=== PATIENT | male | born 1945 | race Caucasian/White ===

== ENCOUNTER 2019-09-10 07:40 | Outpatient (CLI) | payer MEDICARE, OTHER, SELFPAY ==
--- NOTE | 2019-09-10 08:15 | XR_ITS ---
WS: [id number] XR KUB [id number] REASON FOR EXAM: . FINDINGS: The large calcified density previously described on December 16, 2017 in the mid left abdomen i s no longer evident. There is nonspecific gas and fecal stasis. Numerous phleboliths are seen in the pelvis but no definite stones. XR/XR KUB [id number] IMPRESSION: Nonspecific abdominal findings.
== END 2019-09-10 07:41 | disposition home or self-care (01) ==
PROVIDERS: Family Provider Electrodiagnostic Medicine; PCP Electrodiagnostic Medicine; Visit Provider Urology
DX: N20.0 Calculus of kidney (principal)
CPT/HCPCS: 74018; 81001

== ENCOUNTER 2019-11-29 15:45 | Outpatient (CLI) | payer MEDICARE, OTHER, SELFPAY ==
--- NOTE | 2019-11-29 15:55 | MR_ITS ---
WS: [id number] MRI LUMBAR SPINE NONCONTRAST HISTORY: BACK PAIN, LUMBAR WITH RADICULOPATHY, ARTHRITIS COMPARISON: None available. TECHNIQUE: Sagittal and axial multisequence imaging is submitted. L4 anterolisthesis by 5.0 mm. No acute fractures. There is a small amount of marrow edema RIGHT L5 pe dicle and facet joint. There are small bilateral cysts at the L4-5 facet joints. Mild disc desiccation throughout the lumbar spine with mild narrowing of the L1-2 space. Conus terminates normally at L1. L1-L2: Mild annular disc bulging with facet and ligamentum flavum arthritis. There is mild osteophyti c ridging of the vertebral bodies. Very mild bilateral foraminal narrowing. L2-L3: Mild annular disc bulging and osteophytic ridging. Mild ligamentum flavum arthritis and facet joint arthritis. Mild RIGHT foraminal narrowing. L3-L4: Annular disc bulging and osteophytic ridging with facet and ligamentum flavum hypertrophy. Mil d encroachment upon the central canal and subarticular recesses and foramen. Increase fluid in the fa cet joints, greatest on the RIGHT. L4-L5: Diffuse annular disc bulging with slight unroofing of the disc due to anterolisthesis of L4. T here is marked ligamentum flavum hypertrophy. Bilateral facet joint arthritis at narrowing with cysts . Moderate to severe central and subarticular recess stenosis. Mild bilateral foraminal stenosis. L5-S1: Broad-based disc bulging and facet arthritis. No significant stenosis. LEFT renal cyst. Parapelvic cysts. 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 MR/MR lumbar spine wo con* [id number] IMPRESSION: 1. Moderate to severe central and subarticular recess stenosis at L4-5 due to combination of degenerative changes. 2. Multilevel mild bilateral foraminal stenosis. 3. Advanced facet joint arthritis at L4-5 with bilateral facet joint cysts. 4. L4 anterolisthesis by 5 mm.
== END 2019-11-29 15:46 | disposition home or self-care (01) ==
LOC: RADWPI 15:50
PROVIDERS: Family Provider Electrodiagnostic Medicine; PCP Electrodiagnostic Medicine; Visit Provider Electrodiagnostic Medicine
DX: M54.16 Radiculopathy, lumbar region (principal); M19.90 Unspecified osteoarthritis, unspecified site; M62.838 Other muscle spasm; M54.89 Other dorsalgia; M48.061 Spinal stenosis, lumbar region without neurogenic claudication; M25.80 Other specified joint disorders, unspecified joint
CPT/HCPCS: 72148

== ENCOUNTER 2020-02-06 13:55 | Outpatient (CLI) | payer MEDICARE, OTHER, SELFPAY ==
--- NOTE | 2020-02-06 14:00 | XR_ITS ---
WS: [id number] Lumbar spine with flexion, extension, and neutral lateral, 02/06/2020 Clinical Data: SPONDYLOLISTHESIS Comparison: Lumbar spine, 04/30/2015 Findings: No compression fractures or subluxation is seen. There is disc narrowing at the L1-L2 disc level.. No limitation of motion or subluxation is seen on flexion or extension.. 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
== END 2020-02-06 13:56 | disposition home or self-care (01) ==
LOC: RADWPI 13:59
PROVIDERS: Family Provider Electrodiagnostic Medicine; PCP Electrodiagnostic Medicine; Visit Provider Nurse Practitioner
DX: M43.16 Spondylolisthesis, lumbar region (principal)
CPT/HCPCS: 72120

== ENCOUNTER 2020-12-08 10:20 | Outpatient (CLI) | payer MEDICARE, OTHER, SELFPAY ==
--- NOTE | 2020-12-08 10:47 | XR_ITS ---
WS: [id number] RIGHT HIP HISTORY: RIGHT HIP PAIN COMPARISON: None available. Right hip: No acute fracture or dislocation. . Mild sclerosis along the superior acetabulum and small amount of osteophytic ridging. No significant irregularity along the femoral head cortex. XR/XR hip RT 2-3V wo/w pel* [id number] IMPRESSION: 1. No hip fracture. 2. . Minimal RIGHT hip changes of osteoarthritis.
== END 2020-12-08 10:21 | disposition home or self-care (01) ==
PROVIDERS: PCP Electrodiagnostic Medicine; Visit Provider Anesthesiology Pain Medicine
DX: M25.551 Pain in right hip (principal)
CPT/HCPCS: 73502

== ENCOUNTER → 2021-01-09 08:03 | Outpatient (BNVA) | payer MEDICARE, OTHER, SELFPAY | PROVIDERS: PCP Electrodiagnostic Medicine; Referring Provider Orthopaedic Surgery; Visit Provider Orthopaedic Surgery | DX: M48.061 Spinal stenosis, lumbar region without neurogenic claudication (principal) | CPT/HCPCS: 72110 ==

== ENCOUNTER → 2021-01-15 09:18 | Outpatient (BNVA) | payer MEDICARE, OTHER, SELFPAY | PROVIDERS: PCP Electrodiagnostic Medicine; Referring Provider Orthopaedic Surgery; Visit Provider Anesthesiology Pain Medicine | DX: M48.061 Spinal stenosis, lumbar region without neurogenic claudication (principal); M47.816 Spondylosis without myelopathy or radiculopathy, lumbar region; M43.10 Spondylolisthesis, site unspecified; M79.604 Pain in right leg; M79.605 Pain in left leg | CPT/HCPCS: 99205 ==

== ENCOUNTER → 2021-02-04 13:53 | Outpatient (BNVA) | payer MEDICARE, OTHER, SELFPAY | PROVIDERS: PCP Electrodiagnostic Medicine; Visit Provider Anesthesiology Pain Medicine | DX: M54.16 Radiculopathy, lumbar region (principal) | CPT/HCPCS: 64483; 64484; J1100; J3490 ==

== ENCOUNTER → 2021-02-19 14:21 | Outpatient (BNVA) | payer MEDICARE, OTHER, SELFPAY | PROVIDERS: PCP Electrodiagnostic Medicine; Visit Provider Anesthesiology Pain Medicine | DX: M48.061 Spinal stenosis, lumbar region without neurogenic claudication (principal); M47.816 Spondylosis without myelopathy or radiculopathy, lumbar region; M43.10 Spondylolisthesis, site unspecified; M79.604 Pain in right leg; M79.605 Pain in left leg | CPT/HCPCS: 99214 ==

== ENCOUNTER → 2021-03-04 13:47 | Outpatient (BNVA) | payer MEDICARE, OTHER, SELFPAY | PROVIDERS: PCP Electrodiagnostic Medicine; Visit Provider Anesthesiology Pain Medicine | DX: M47.816 Spondylosis without myelopathy or radiculopathy, lumbar region (principal) | CPT/HCPCS: 64493; 64494; 64495; J3490 ==

== ENCOUNTER 2021-03-06 07:53 | Outpatient (CLI) | payer MEDICARE, OTHER, SELFPAY ==
--- NOTE | 2021-03-06 08:15 | XR_ITS ---
WS: [id number] KUB, AP view, 03/06/2021 Clinical Data: CALCULUS OF KIDNEY Comparison: KUB, 09/10/2019. Findings: No abnormal intraabdominal masses are seen. There is no dilatated small bowel or evidence of obstruct ion. There is a 0.6 cm calcification left of the L4 vertebral body which could be in the left ureter. Ther e are phleboliths in the true pelvis. Fecal material and colon gas obscure detail over both kidneys. No definite renal calcifications are seen. XR/XR KUB [id number] Impression: Possible left ureteral calculus.
== END 2021-03-06 07:54 | disposition home or self-care (01) ==
LOC: RAD 07:58
PROVIDERS: PCP Electrodiagnostic Medicine; Visit Provider Urology
DX: N20.0 Calculus of kidney (principal)
CPT/HCPCS: 74018; 81003

== ENCOUNTER 2021-03-12 09:53 | Outpatient (CLI) | payer MEDICARE, OTHER, SELFPAY ==
--- NOTE | 2021-03-12 09:45 | XR_ITS ---
WS: [id number] XR KUB [id number] REASON FOR EXAM: ureteral calculus FINDINGS: Compared to the examination of 03/06/2021 the presumed left ureteral calculus seen just superior to th e left sacroiliac joint is no longer identifiable in that position or within the pelvis. No other urinary tract calculi are identified. No other significant abdominal abnormality is identified. XR/XR KUB [id number] IMPRESSION: Previously defined left ureteral calculus no longer identifiable.
== END 2021-03-12 09:54 | disposition home or self-care (01) ==
LOC: RAD 09:55
PROVIDERS: PCP Electrodiagnostic Medicine; Visit Provider Urology
DX: N20.1 Calculus of ureter (principal)
CPT/HCPCS: 74018; 81003

== ENCOUNTER → 2021-03-19 09:02 | Outpatient (BNVA) | payer MEDICARE, OTHER, SELFPAY | PROVIDERS: PCP Electrodiagnostic Medicine; Visit Provider Anesthesiology Pain Medicine | DX: M48.061 Spinal stenosis, lumbar region without neurogenic claudication (principal); M47.816 Spondylosis without myelopathy or radiculopathy, lumbar region; M43.10 Spondylolisthesis, site unspecified; M79.601 Pain in right arm; M79.602 Pain in left arm; Z79.891 Long term (current) use of opiate analgesic | CPT/HCPCS: 99214 ==

== ENCOUNTER 2021-03-25 07:59 | Outpatient (CLI) | payer MEDICARE, OTHER, SELFPAY ==
--- NOTE | 2021-03-25 07:30 | XR_ITS ---
WS: [id number] Exam: XR KUB [id number] Date/Time of Exam: 03/25/2021 8:05 AM Reason For Exam: CALCULUS OF KIDNEY No bowel obstruction or free air. Moderate amount retained stool in the colon. No obvious calcificati ons noted in the region of the kidneys. Nonspecific pelvic calcifications probably phleboliths. Regio nal bony elements are intact. XR/XR KUB [id number] IMPRESSION: 1. No acute abdominal finding. Moderate amount retained stool in the colon.
== END 2021-03-25 08:00 | disposition home or self-care (01) ==
LOC: RAD 08:02
PROVIDERS: PCP Electrodiagnostic Medicine; Visit Provider Urology
DX: N20.0 Calculus of kidney (principal); N20.1 Calculus of ureter
CPT/HCPCS: 74018; 81003

== ENCOUNTER → 2021-03-30 13:45 | Outpatient (BNVA) | payer MEDICARE, OTHER, SELFPAY | PROVIDERS: PCP Electrodiagnostic Medicine; Visit Provider Anesthesiology Pain Medicine | DX: M47.816 Spondylosis without myelopathy or radiculopathy, lumbar region (principal); Z79.891 Long term (current) use of opiate analgesic; Z87.891 Personal history of nicotine dependence | CPT/HCPCS: 64635; 64636 ==

== ENCOUNTER 2021-04-01 07:02 | Outpatient (CLI) | payer MEDICARE, OTHER, SELFPAY ==
--- NOTE | 2021-04-01 07:00 | XR_ITS ---
WS: [id number] XR KUB [id number] REASON FOR EXAM: URETERAL CALCULUS FINDINGS: Distal left ureteral calculus demonstrated on 03/06/2021 was not identified but in retrospect is prese nt on the examination of 03/12/2011 overlapping a phlebolith. This distal left ureteral calculus can b e seen separate from the phlebolith on 04/24/2021 and on the current examination. It has not changed position significantly compared to 03/25/2021. XR/XR KUB [id number] IMPRESSION: Persistent left distal ureteral calculus as above.
== END 2021-04-01 07:03 | disposition home or self-care (01) ==
LOC: RAD 07:04
PROVIDERS: PCP Electrodiagnostic Medicine; Visit Provider Urology
DX: N20.1 Calculus of ureter (principal); Z20.822 Contact with and (suspected) exposure to COVID-19
CPT/HCPCS: 74018; 81003; 87635

== ENCOUNTER 2021-04-06 10:39 | Day surgery (SDC) | payer MEDICARE, OTHER, SELFPAY ==
[2021-04-03 14:03] VITALS: BMI 24.4
[2021-04-06] VITALS (7 sets, daily range): BP systolic 138–173; BP diastolic 82–103; PULSE 52–60; RESP 12–17; TEMP 36–36.8; O2SAT 95–98
--- NOTE | 2021-04-06 | SCC_ITS ---
Procedure Done: 1. Cystoscopy, LEFT retrograde ureteropyelogram 2. LEFT ureteroscopy, laser lithotripsy, stent 25.2 seconds of fluoroscopic guidance, for a cumulative dose of 5.37 mGy, was provided to Dr. Sanchez by the radiology department. C-arm images of the abdomen were saved for the patient's permanent record. [facility]
--- NOTE | 2021-04-06 10:46 | SC_ITS ---
WS: [id number] C-arm [place] for Urology REASON FOR EXAM: Left ureteroscopy FINDINGS: Injection of contrast into the distal left ureteral orifice opacifies the distal most left ureter dem onstrating a filling defect compatible with previously diagnosed distal left ureteral calculus. Retrograde passage of a catheter to the left renal pelvis with no contrast injected. SC/C-arm [place] for Urology IMPRESSION: Initial demonstration of distal left ureteral calculus. Catheter passage to the left renal pelvis.
--- NOTE | 2021-04-06 10:46 | XR_ITS ---
WS: [id number] XR KUB [id number] REASON FOR EXAM: Left distal ureteral stone FINDINGS: Calculus in the left pelvis, presumed left distal ureteral calculus is not significantly changed posi tion since previous examination of 04/01/2021. No other significant abdominal or pelvic abnormality. XR/XR KUB [id number] IMPRESSION: Presumed distal left ureteral calculus with no further migration.
--- NOTE | 2021-04-06 11:33 | ANES.PREANE2 ---
Pre-Anesthetic Assessment Pre-Anesthetic Assessment: Height/Weight: Height 1.85 m Weight 83.915 kg Temp Pulse Resp BP Pulse Ox 98.3 F 56 L 16 161/88 95 04/06/21 11:14 04/06/21 11:14 04/06/21 11:14 04/06/21 11:28 04/06/21 11:14 Preop Diagnosis: Refractory left distal ureteral stone Proposed Procedure: Operation Date: 04/06/21 12:00 Proposed Procedures p Cystoscopy 26228 N20.1(Not Applicable) - Pop Sanchez MD s Retrograde Pyelogram(Not Applicable) - MD nuzhat Matamoros Ureteroscopy(Not Applicable) - MD nuzhat [place] Laser Lithotripsy(Not Applicable) - Pop Sanchez MD s Ureteral Stent Placement(Not Applicable) - Pop Sanchez MD Familial anesthetic complications: none Was Beta Tabby taken within 24 hours: Yes Was Clonidine taken within 24 hours: N/A Last intake: Intake Last Liquid Date 04/05/21 Last Liquid Time 20:00 Last Solid Date 04/05/21 Last Solid Time 19:00 Social: Social History: No alcohol and No tobacco Exam: Pre-Anes Outpt Exam: alert, oriented x 3, clear to auscultation bilaterally and regular rate & rhythm Airway: Cervical ROM: WNL MP: 2 Dentition: Partials CV/HEM: CV/HEM: HTN Anesthetic Plan: ASA status: 2 Anesthesia: General Risk of > 500 ml blood loss (7ml/kg in children): No PFSH Anesthesia PFSH: Medical History Calculus of kidney Surgical History Hx of inguinal hernia repair Status post extracorporeal shock wave therapy Status post placement of ureteral stent Family History Mother , AT AGE 89. HX OF BLOOD CLOTS Hypertension Father , AT AGE 75 Diabetes Social History Second hand smoke exposure: No Alcohol intake: current Alcohol intake frequency: few times a month Alcohol type: beer and hard liquor Adopted: No Caregiver/support person: No Lives independently: No Household members: spouse Marital status: Current occupational status: retired History of recent travel: No Data Anesthesia Cardiac Studies: No Data to Display
--- NOTE | 2021-04-06 12:03 | W.PM.OPSUD ---
Surgery/Procedure H&P Update DATE OF PROCEDURE: April 06, 2021 DATE H&P PERFORMED: 03/31/21 H&P UPDATE INFORMATION: I have reviewed H&P completed within last 30 days, I have examined patient prior to procedure, No changes to prior documentation and H&P is in [facility] EMR on date indicated CHANGES TO PREVIOUS DOCUMENTATION: Still same spot on KUB PREOP DIAGNOSIS: Refractory left distal ureteral stone PLANNED PROCEDURE: Operation Date: 04/06/21 12:00 Proposed Procedures p Cystoscopy 16425 N20.1(Not Applicable) - Pop Sanchez MD s Retrograde Pyelogram(Not Applicable) - MD nuzhat [place] Ureteroscopy(Not Applicable) - MD nuzhat [place] Laser Lithotripsy(Not Applicable) - Pop Sanchez MD s Ureteral Stent Placement(Not Applicable) - Pop Sanchez MD
--- NOTE | 2021-04-06 12:07 | PM.OP ---
Operative Report Date of procedure: April 06, 2021 Pre-op Diagnosis: Refractory left distal ureteral stone Post-op diagnosis: same Procedure Done: 1. Cystoscopy, LEFT retrograde ureteropyelogram 2. LEFT ureteroscopy, laser lithotripsy, stent Specimens removed/disposition: Stone fragments Pathology: Stone fragments Surgeon: Daniel Anesthesia: General Estimated blood loss: Normal Complications: None Findings: 1. Stone in the expected position. 2. Some stone related inflammatory changes in the ureter, leading to the stent Condition: stable Disposition: PACU Brief History: Mr. Kim is a very pleasant 76-year-old white male with a recently diagnosed left ureteral stone that was located in the left mid ureter at diagnosis. Had intermittent severe symptoms. He wanted to see if he could pass the stone but failed to progress to the point of passage and stalled in the left distal ureter. He was offered continued conservative management but ultimately wanted to proceed with intervention is admitted today to outpatient surgery for cystoscopy ureteroscopic treatment. Procedure: After routine preoperative evaluation examination and obtaining of informed consent he was taken to the operating suite on 04/06/2021 where general anesthesia was administered without difficulty after appropriate timeout was performed, SCDs confirmed to be functioning, preoperative antibiotics administered, beta-grady protocol confirmed. Prepped and draped in the usual sterile fashion in dorsolithotomy position pain careful attention to avoid pressure points. 21 Mauritanian cystoscope with 30 degree lens was introduced into the urethra meatus and advanced into the bladder under videoscopy. Bladder was systematically examined. No stone was identified. An 8 Mauritanian cone-tip catheter was intubated into the left ureteral orifice for a left retrograde ureteropyelogram which demonstrated stone in the expected position. The ureter proximal to that was not severely dilated. A flexible tip guidewire was then advanced up the left ureter bypassing the stone without difficulty. The distally ureter was dilated with a 15 Mauritanian 4 cm balloon. The wire was secured to the drapes as a safety wire and a 7 Mauritanian offset semirigid ureteroscope was advanced up the left ureter next to the stent. The stone was encountered in the expected position. It was fragmented with a 365 ?m thulium superpulse laser fiber into small fragments that were flushed free and removed with a parachute basket. The cystoscope was then backloaded over the guidewire and a 4.5 Mauritanian by 30 cm ureteral stent without string was advanced over the guidewire through the cystoscope into appropriate position as confirmed via fluoroscopy and cystoscopy. The bladder was drained and the procedure was completed after flushing out the fragments from the bladder. Tolerated procedure well without complication and was awakened in the operating room and returned to the recovery room in stable condition. PLANS: 1. Anticipate discharge from outpatient surgery 2. Follow-up early next week or late this week for cystoscopy and stent removal in the office.
[2021-04-06] MEDS: sodium chloride 0.9% 1,000 ML 30 ML IV (12:23)
[2021-04-06] MEDS: levofloxacin-dextrose 5 % 500 MG/100 ML PREMIX 100 MG IV (12:26)
[2021-04-06] MEDS: iohexol 300 mg/mL 50 mL Btl (OR ONLY) XX (13:22)
[2021-04-16 02:02] LABS: Stone Source LEFT URETER
== END 2021-04-06 14:22 | disposition home or self-care (01) ==
PROVIDERS: PCP Electrodiagnostic Medicine; Visit Provider Urology
PROC: 0TJB8ZZ Inspection of Bladder, Via Natural or Artificial Opening Endoscopic (ICD-10-PCS; CPT 52000; principal; 2021-04-06 12:00)
PROC: (CPT 74420; 2021-04-06 12:00)
PROC: 0TJ98ZZ Inspection of Ureter, Via Natural or Artificial Opening Endoscopic (ICD-10-PCS; CPT 52351; 2021-04-06 12:00)
PROC: (CPT 52356; 2021-04-06 12:00)
PROC: (CPT 50605; 2021-04-06 12:00)
DX: N20.1 Calculus of ureter (principal); I10 Essential (primary) hypertension
CPT/HCPCS: 52356; 74018; 76000; 82365; 88300; C2625; J1100; J1956; J2370; J2405; J2704; J2710; J3010; J3490; J7030

== ENCOUNTER 2021-04-06 18:54 | Emergency (ER) | payer MEDICARE, OTHER, SELFPAY ==
[2021-04-06 19:13] VITALS: BP 186/63; PULSE 76; RESP 16; TEMP 36.9; O2SAT 94
--- NOTE | 2021-04-06 20:54 | W.ED.GENADLT ---
HPI - General Adult General: Chief complaint: General Medical Stated complaint: Had Stent Put intoday, Cant urinate Time Seen by Provider: 04/06/21 20:48 Source: patient Mode of arrival: ambulatory Limitations: no limitations History of Present Illness: HPI narrative: 76-year-old male who states he had a stent placed today for kidney stone has not been able to urinate since he has been home. He states he been having pressure over his bladder states he is only been able to get a dribble out. States he does have pain he rates a 6 out of 10. Denies any fever. Associated symptoms: Deny chest pain, dyspnea, headache(s), nausea, rash or vomiting Review of Systems Const: Denies: fever(s), chills, body aches or change in appetite Eyes: Denies: blurry vision or eye discomfort ENMT: Denies: throat pain or dental pain Card: Denies: chest pain Resp: Denies: dyspnea GI: Denies: abdominal pain, nausea, vomiting or diarrhea : Reports: difficulty urinating Musc: Denies: neck pain or back pain Skin/Breast: Denies: rash Neuro: Denies: headache(s) Psych: Denies: depression [place]/Lymph: Denies: easy bruising All/Imm: Denies: urticaria PFSH ED PFSH: Medical History Calculus of kidney Surgical History Hx of inguinal hernia repair Status post extracorporeal shock wave therapy Status post placement of ureteral stent Family History Mother , AT AGE 89. HX OF BLOOD CLOTS Hypertension Father , AT AGE 75 Diabetes Social History Second hand smoke exposure: No Alcohol intake: current Alcohol intake frequency: few times a month Alcohol type: beer and hard liquor Adopted: No Caregiver/support person: No Lives independently: No Household members: spouse Marital status: Current occupational status: retired History of recent travel: No Physical Exam Const: COMMON NORMALS: no acute distress, patient oriented x3 and healthy appearing HENMT: COMMON NORMALS: normocephalic and atraumatic HEAD & SCALP: normocephalic and atraumatic Eye: COMMON NORMALS: Equal, round and reactive pupils present and EOMs intact bilaterally PUPIL: Yes Equal, round and reactive pupils present Neck/C-Spine: COMMON NORMALS: full ROM and supple Chest: COMMONS NORMALS: normal inspection of the chest and normal palpation of entire chest wall Resp: COMMON NORMALS: normal respiratory effort, No retractions, No use of accessory muscles and clear to auscultation bilaterally AUSCULTATION: clear to auscultation bilaterally Cardio: COMMON NORMALS: regular rate, regular rhythm and No murmurs present (Cardio) RATE: regular rate RHYTHM: regular rhythm GI: COMMON NORMALS: Normal to inspection, nondistended, normoactive bowel sounds present, Soft to palpation, non-tender and no masses PALPATION: Yes Soft to palpation Extremity: COMMON NORMALS: normal to inspection and full ROM Neuro: COMMON NORMALS: patient oriented x3, moves all extremities and no focal motor deficits Psych: COMMON NORMALS: mental status grossly normal, Normal thought process present and cooperative THOUGHT PROCESS: Normal thought process present Skin: COMMON NORMALS: no rashes or lesions noted and no wounds GENERAL SKIN EXAM: no rashes or lesions noted Course Vital Signs: Vital signs: Vital Signs Temperature 98.4 F 04/06/21 19:13 Pulse Rate 85 04/06/21 21:27 Respiratory Rate 16 04/06/21 21:27 Blood Pressure 179/95 04/06/21 21:27 Pulse Oximetry 96 04/06/21 21:27 MDM - General Adult MDM Narrative: Medical decision making narrative: Patient presents here with urinary retention feels much improved after [place] placed. We will get him follow-up with Dr. Sanchez leave [place] in place and have him with a leg bag. He stable for discharge is to return if worsening. Lab Data: Labs: Lab Results 04/06/21 21:20 Urine Color Brown (Yellow) Urine Appearance Cloudy (CLEAR) Urine pH 5 (5-7) Ur Specific Gravit y 1.020 (1.005-1.030) Urine Protein 3+ H (Negative) Urine Glucose (UA) 1+ H (Normal) Urine Ketones Negative (Negative) Urine Blood 3+ H (Negative) Urine Nitrate Negative (Negative) Urine Bilirubin Neg (Negative) Urine Urobilinogen Norm mg/dL mg/dL (Negative) Ur Leukocyte Светлана ase Trace H (Negative) Urine RBC Too numerous to c nt /hpf H /hpf (0-2) Urine WBC 0-4 /hpf H /hpf (0-5) Ur Squamous Epith Cells 0-4 /hpf H /hpf (0-5) Amorphous Sediment Not Reportable Urine Bacteria Trace /hpf /hpf (NONE) Discharge Plan Discharge Patient Disposition: Home Clinical Impression: Acute urinary retention Condition: Stable Prescriptions: New cephalexin 500 mg capsule 500 mg PO TID 7 Days Qty: 21 RF: 0 No Action omeprazole 40 mg capsule,delayed release(DR/EC) 40 mg PO DAILY RF: 0 glucosamine-chondroitin [Osteo Bi-Flex] 250-200 mg tablet 2 tab PO TID RF: 0 lysine [L-Lysine] 500 mg tablet 500 mg PO DAILY RF: 0 fexofenadine [Pamela Allergy] 60 mg tablet 60 mg PO BID RF: 0 omega-3 fatty acids [Fish Oil Concentrate] 1,000 mg capsule 1,000 mg PO DAILY RF: 0 Ultra CoQ10 75 mg capsule 75 mg PO DAILY RF: 0 meloxicam 7.5 mg tablet 7.5 mg PO DAILY RF: 0 carvedilol 6.25 mg tablet 6.25 mg PO BID RF: 0 tramadol 50 mg tablet 50 mg PO DAILY PRN (Reason: Pain) RF: 0 saw palmetto 500 mg capsule 500 mg PO DAILY RF: 0 oxycodone-acetaminophen [Percocet] 5-325 mg tablet 1 tab PO Q6H PRN (Reason: pain) 4 Days Qty: 16 RF: 0 tamsulosin 0.4 mg capsule 0.4 mg PO QDAY Qty: 30 RF: 12 methylprednisolone acetate [Depo-Medrol] 40 mg/mL suspension 40 mg Infiltration ONCE Qty: 1 RF: 0 lidocaine (PF) 10 mg/mL (1 %) solution 10 mg SUBCUT ONCE Qty: 1 RF: 0 multivitamin Tablet 1 tab PO DAILY RF: 0 vitamin B complex Capsule 1 cap PO DAILY RF: 0 Discharge Orders: Discharge ED (Routine); Ordered 04/06/21 Ordered By: Cathleen Fuentes Referrals: Pop Sanchez MD [Physician] - 1-3 days Moisés Moore DO [Primary Care Provider] - Discharge Diet: Advance as tolerated Discharge Activity: Resume usual activity Patient Instructions: Urinary Retention in Men (ED) Coding Level of Care Code ED Cost Accounting Manager for [employer] Fwd Exam Comprehensive
[2021-04-06 21:27] VITALS: BP 179/95; PULSE 85; RESP 16; O2SAT 96
[2021-04-06 21:49] LABS: Add Urine Culture? Yes; Add Urine Microscopic? YES; Bacteria Urine TRACE /hpf; Bilirubin Urine Neg (Negative); Blood Urine 3+ (Negative); Glucose Urine UA 1+ (Normal); Ketones Urine Negative (Negative); Leukocyte Esterase Urine Trace (Negative); Nitrate Urine Negative (Negative); Protein Urine 3+ (Negative); RBC Urine TOO NUMEROUS TO CNT /hpf (0-2); Squamous Epithelial Cell Urine 0-4 /hpf (0-5); Urine Appearance Cloudy (CLEAR); Urine Color Brown (Yellow); Urobilinogen Urine Norm (Negative); WBC Urine 0-4 /hpf (0-5); pH Urine 5 (5-7)
[2021-04-06 22:10] VITALS: BP 159/87; PULSE 76; RESP 18; O2SAT 95
== END 2021-04-06 22:13 | disposition home or self-care (01) ==
PROVIDERS: Emergency Provider Emergency Medicine; PCP Electrodiagnostic Medicine
DX: R33.9 Retention of urine, unspecified (principal); Z87.442 Personal history of urinary calculi; Z96.0 Presence of urogenital implants; N20.1 Calculus of ureter; I10 Essential (primary) hypertension
CPT/HCPCS: 51702; 74018; 76000; 81001; 82365; 87086; 88300; 99282; C2625; J1956; J2370; J2704; J2710; J3490; J7030

== ENCOUNTER → 2021-04-13 12:42 | Outpatient (BNVA) | payer MEDICARE, OTHER, SELFPAY | PROVIDERS: PCP Electrodiagnostic Medicine; Visit Provider Anesthesiology Pain Medicine | DX: M47.816 Spondylosis without myelopathy or radiculopathy, lumbar region (principal); M54.16 Radiculopathy, lumbar region; Z79.891 Long term (current) use of opiate analgesic | CPT/HCPCS: 64635; 64636; J1030 ==

== ENCOUNTER → 2021-04-27 09:06 | Outpatient (BNVA) | payer MEDICARE, OTHER, SELFPAY | PROVIDERS: PCP Electrodiagnostic Medicine; Visit Provider Anesthesiology Pain Medicine | DX: M48.061 Spinal stenosis, lumbar region without neurogenic claudication (principal); M47.816 Spondylosis without myelopathy or radiculopathy, lumbar region; M43.10 Spondylolisthesis, site unspecified; M79.605 Pain in left leg; M79.604 Pain in right leg; Z79.891 Long term (current) use of opiate analgesic | CPT/HCPCS: 99213 ==

== ENCOUNTER → 2021-06-22 16:01 | Outpatient (BNVA) | payer MEDICARE, OTHER, SELFPAY | PROVIDERS: PCP Electrodiagnostic Medicine; Visit Provider Nurse Practitioner Family | DX: Z20.822 Contact with and (suspected) exposure to COVID-19 (principal) | CPT/HCPCS: 87635 ==

== ENCOUNTER → 2021-07-16 13:32 | Outpatient (BNVA) | payer MEDICARE, OTHER, SELFPAY | PROVIDERS: PCP Electrodiagnostic Medicine; Visit Provider Urology | DX: R33.8 Other retention of urine (principal); N20.0 Calculus of kidney | CPT/HCPCS: 81003 ==

== ENCOUNTER 2022-02-02 12:55 | Outpatient (CLI) | payer MEDICARE, OTHER, SELFPAY ==
--- NOTE | 2022-02-02 12:45 | XR_ITS ---
WS: [id number] XR KUB [id number] REASON FOR EXAM: LEFT URETERAL CALCULUS FINDINGS: No recent examination for comparison. Large amount of dense: Content overlies the right kidney however there appear to be right renal calcu yeni/calculi present. No left renal calculi identified. No ureteral or bladder calculi identified. XR/XR KUB [id number] IMPRESSION: Probable right intrarenal calculi as above.
== END 2022-02-02 12:56 | disposition home or self-care (01) ==
PROVIDERS: PCP Electrodiagnostic Medicine; Visit Provider Urology
DX: N20.0 Calculus of kidney (principal); R33.8 Other retention of urine
CPT/HCPCS: 51798; 74018; 81003; 99213

== ENCOUNTER 2022-07-08 12:56 | Outpatient (CLI) | payer MEDICARE, OTHER, SELFPAY ==
--- NOTE | 2022-07-08 13:06 | XR_ITS ---
WS: [id number] DEXA (DUAL ENERGY X-RAY ABSORPTIOMETRY) Bone mineral density was performed using a [employer] machine. HISTORY: OSTEOPOROSIS OF VERTEBRA COMPARISON: None available. Lumbar spine BMD (L1-L4): 1.162 g/cm2 T score: -0.5 Z score: -0.2 Total hip BMD: Left: 0.870 g/cm2. T score: -1.6 Z score: -0.9 Right: 0.810 g/cm2. T score: -2.0 Z score: -1.3 10 year probability of a major osteoporotic fracture is 10.6%. XR/XR DEXA axial skeleton* [id number] IMPRESSION: OSTEOPENIA.
== END 2022-07-08 12:57 | disposition home or self-care (01) ==
LOC: RAD 12:57
PROVIDERS: PCP Electrodiagnostic Medicine; Visit Provider Electrodiagnostic Medicine
DX: M81.0 Age-related osteoporosis without current pathological fracture (principal); M85.80 Other specified disorders of bone density and structure, unspecified site
CPT/HCPCS: 77080

== ENCOUNTER → 2023-02-10 15:45 | Outpatient (BNVA) | payer MEDICARE, OTHER, SELFPAY | PROVIDERS: PCP Electrodiagnostic Medicine; Visit Provider Nurse Practitioner Family | DX: Z86.006 Personal history of melanoma in-situ (principal); Z85.828 Personal history of other malignant neoplasm of skin; L82.1 Other seborrheic keratosis; L81.4 Other melanin hyperpigmentation; D18.01 Hemangioma of skin and subcutaneous tissue; L57.0 Actinic keratosis; L57.8 Other skin changes due to chronic exposure to nonionizing radiation | CPT/HCPCS: 17000; 99213 ==

== ENCOUNTER → 2023-03-21 13:20 | Outpatient (BNVA) | payer MEDICARE, OTHER, SELFPAY | PROVIDERS: PCP Electrodiagnostic Medicine; Visit Provider Podiatrist Foot & Ankle Surgery | DX: L84 Corns and callosities (principal); L90.9 Atrophic disorder of skin, unspecified; G62.9 Polyneuropathy, unspecified | CPT/HCPCS: 99203 ==

== ENCOUNTER → 2023-08-10 13:30 | Outpatient (BNVA) | payer MEDICARE, OTHER, SELFPAY | PROVIDERS: PCP Electrodiagnostic Medicine; Visit Provider Nurse Practitioner Family | DX: L57.0 Actinic keratosis (principal); L82.0 Inflamed seborrheic keratosis; L81.4 Other melanin hyperpigmentation; D18.01 Hemangioma of skin and subcutaneous tissue; L57.8 Other skin changes due to chronic exposure to nonionizing radiation; L91.8 Other hypertrophic disorders of the skin; Z86.006 Personal history of melanoma in-situ; Z85.828 Personal history of other malignant neoplasm of skin | CPT/HCPCS: 11200; 17110; 99213 ==

== ENCOUNTER → 2023-10-18 14:28 | Outpatient (BNVA) | payer MEDICARE, OTHER, SELFPAY | PROVIDERS: PCP Electrodiagnostic Medicine; Visit Provider Podiatrist Foot & Ankle Surgery | DX: L84 Corns and callosities (principal); L90.9 Atrophic disorder of skin, unspecified; G62.9 Polyneuropathy, unspecified | CPT/HCPCS: 99213 ==

== ENCOUNTER → 2024-02-08 15:22 | Outpatient (BNVA) | payer MEDICARE, OTHER, SELFPAY | PROVIDERS: PCP Electrodiagnostic Medicine; Visit Provider Nurse Practitioner Family | DX: L57.0 Actinic keratosis (principal); L81.4 Other melanin hyperpigmentation; D18.01 Hemangioma of skin and subcutaneous tissue; L57.8 Other skin changes due to chronic exposure to nonionizing radiation | CPT/HCPCS: 17000; 17110; 99213 ==

== ENCOUNTER → 2024-05-05 18:21 | Outpatient (BNVA) | payer MEDICARE, OTHER, SELFPAY | PROVIDERS: PCP Electrodiagnostic Medicine; Visit Provider Emergency Medicine | DX: S52.124A Nondisplaced fracture of head of right radius, initial encounter for closed fracture (principal); M19.041 Primary osteoarthritis, right hand; M25.521 Pain in right elbow; W19.XXXA Unspecified fall, initial encounter | CPT/HCPCS: 73080; 73110 ==

== ENCOUNTER → 2024-05-09 08:53 | Outpatient (BNVA) | payer MEDICARE, OTHER, SELFPAY | PROVIDERS: PCP Electrodiagnostic Medicine; Visit Provider Specialist | DX: S52.124A Nondisplaced fracture of head of right radius, initial encounter for closed fracture (principal); W01.0XXA Fall on same level from slipping, tripping and stumbling without subsequent striking against object, initial encounter | CPT/HCPCS: 73080 ==

== ENCOUNTER 2024-05-09 14:40 | Outpatient (CLI) | payer MEDICARE, OTHER, SELFPAY | END 2024-05-09 14:41 | disposition home or self-care (01) | LOC: SPT 14:41 | PROVIDERS: PCP Electrodiagnostic Medicine; Visit Provider Specialist | DX: Z46.89 Encounter for fitting and adjustment of other specified devices (principal); S62.501D Fracture of unspecified phalanx of right thumb, subsequent encounter for fracture with routine healing; S52.121D Displaced fracture of head of right radius, subsequent encounter for closed fracture with routine healing; X58.XXXD Exposure to other specified factors, subsequent encounter | CPT/HCPCS: 97760; L3761; L3908 ==

== ENCOUNTER → 2024-05-28 14:47 | Outpatient (BNVA) | payer MEDICARE, OTHER, SELFPAY | PROVIDERS: PCP Electrodiagnostic Medicine; Visit Provider Specialist | DX: S52.124A Nondisplaced fracture of head of right radius, initial encounter for closed fracture (principal); S63.501A Unspecified sprain of right wrist, initial encounter; X58.XXXA Exposure to other specified factors, initial encounter | CPT/HCPCS: 24650; 73080; 73110; 99213 ==

== ENCOUNTER → 2024-06-13 14:09 | Outpatient (BNVA) | payer MEDICARE, OTHER, SELFPAY | PROVIDERS: PCP Electrodiagnostic Medicine; Visit Provider Specialist | DX: S52.124D Nondisplaced fracture of head of right radius, subsequent encounter for closed fracture with routine healing; X58.XXXD Exposure to other specified factors, subsequent encounter | CPT/HCPCS: 73080; 99024 ==

== ENCOUNTER → 2024-07-18 15:29 | Outpatient (BNVA) | payer MEDICARE, OTHER, SELFPAY | PROVIDERS: PCP Electrodiagnostic Medicine; Visit Provider Specialist | DX: S52.124D Nondisplaced fracture of head of right radius, subsequent encounter for closed fracture with routine healing; X58.XXXD Exposure to other specified factors, subsequent encounter | CPT/HCPCS: 73080; 99024 ==

== ENCOUNTER → 2024-08-23 15:18 | Outpatient (BNVA) | payer MEDICARE, OTHER, SELFPAY | PROVIDERS: PCP Electrodiagnostic Medicine; Visit Provider Nurse Practitioner Family | DX: L81.4 Other melanin hyperpigmentation (principal); L57.8 Other skin changes due to chronic exposure to nonionizing radiation; D22.5 Melanocytic nevi of trunk; L82.1 Other seborrheic keratosis; Z86.006 Personal history of melanoma in-situ; Z08 Encounter for follow-up examination after completed treatment for malignant neoplasm; Z85.828 Personal history of other malignant neoplasm of skin; L57.0 Actinic keratosis | CPT/HCPCS: 17000; 99213 ==

== ENCOUNTER → 2024-10-04 14:46 | Outpatient (BNVA) | payer MEDICARE, OTHER, SELFPAY | PROVIDERS: PCP Electrodiagnostic Medicine; Visit Provider Nurse Practitioner Family | DX: L81.4 Other melanin hyperpigmentation (principal); L57.8 Other skin changes due to chronic exposure to nonionizing radiation; L72.0 Epidermal cyst; D22.39 Melanocytic nevi of other parts of face; L82.1 Other seborrheic keratosis; Z86.006 Personal history of melanoma in-situ; Z08 Encounter for follow-up examination after completed treatment for malignant neoplasm; Z85.828 Personal history of other malignant neoplasm of skin; L57.0 Actinic keratosis | CPT/HCPCS: 17000; 99213 ==

== ENCOUNTER → 2025-01-02 15:48 | Outpatient (BNVA) | payer MEDICARE, OTHER, SELFPAY | PROVIDERS: PCP Electrodiagnostic Medicine; Visit Provider Nurse Practitioner Family | DX: L57.0 Actinic keratosis (principal); L82.1 Other seborrheic keratosis; L21.8 Other seborrheic dermatitis; L82.0 Inflamed seborrheic keratosis; L29.89 Other pruritus; L53.8 Other specified erythematous conditions; Z78.9 Other specified health status; R20.8 Other disturbances of skin sensation | CPT/HCPCS: 17110; 99214 ==

== ENCOUNTER → 2025-04-30 14:42 | Outpatient (BNVA) | payer MEDICARE, OTHER, SELFPAY | PROVIDERS: PCP Electrodiagnostic Medicine; Visit Provider Podiatrist Foot & Ankle Surgery | DX: L84 Corns and callosities (principal); L90.9 Atrophic disorder of skin, unspecified; G62.9 Polyneuropathy, unspecified | CPT/HCPCS: 99213 ==